=== PATIENT | male | born 1940 | race Caucasian/White ===

== ENCOUNTER 2020-06-05 11:48 | Inpatient (IN) | payer MEDICARE, OTHER, SELFPAY ==
[2020-06-05] VITALS (14 sets, daily range): BP systolic 80–93; BP diastolic 34–61; PULSE 63–94; RESP 17–23; TEMP 36–36.6; O2SAT 98–100
--- NOTE | ~2020-06-05 | XR_ITS ---
XR chest 1V portable 06/05/2020 14:14 Indication: Low blood pressure Procedure: AP portable chest Comparison: No prior studies for comparison. Findings: Status post median sternotomy for CABG. Cardiomegaly. Pacemaker leads in expected position. Left basilar atelectasis. No focal pneumonia, edema, pleural effusion or pneumothorax. There are mohamud gical changes in the left axilla and supraclavicular locations. Impression: 1: Left basilar atelectasis. 2: Cardiomegaly. Reviewed, dictated and finalized at location A. Impression: 1: Left basilar atelectasis. 2: Cardiomegaly.
--- NOTE | ~2020-06-05 | US_ITS ---
EXAMINATION:US venous doppler LE BI INDICATION:Leg edema TECHNIQUE: Multiple grayscale, color flow and Doppler images of the right and left lower extremity de ep venous systems were obtained and reviewed. COMPARISON:No prior studies for comparison. FINDINGS: The common femoral, superficial femoral and popliteal veins demonstrate normal respiratory variation, augmentation and compressibility. Color flow is also seen within the posterior tibial, pe roneal, greater saphenous and profunda veins. IMPRESSION: 1: No lower extremity deep venous thrombosis. Reviewed, dictated and finalized at location A.
--- NOTE | 2020-06-05 12:40 | PC.NURSE ---
Patient's contacted with patient's permission. She has provided information on how to contact home health.
[2020-06-05 12:44] LABS: Basophils Percent Auto 0.1 % (0.2-1.2); Eosinophils Absolute Auto 0.1 K/mm3 (0-0.3); Eosinophils Percent Auto 0.9 % (0-4.4); Hematocrit 22.4 % (42.0-52.0); Hemoglobin 7.3 g/dL (14.0-18.0); Immature Granulocyte Absolute 0.11 K/mm3 (0.00-0.031); Immature Granulocyte Percent A 1.1 % (0-0.5); Lymphocytes Percent Auto 18.1 % (18.3-44.2); Mean Corpuscular HGB Conc 32.6 g/dl (32-36); Mean Corpuscular Hemoglobin 27.3 pg (26-34); Mean Corpuscular Volume 83.9 fl (80-100); Mean Platelet Volume 10.9 fl (7.4-10.4); Monocytes Absolute Auto 0.9 K/mm3 (0.1-0.6); Monocytes Percent Auto 8.7 % (2.6-8.5); Neutrophils Absolute Auto 7.1 K/mm3 (1.3-6.7); Neutrophils Percent Auto 71.1 % (45.5-73.1); Platelet Count Result 92 k/mm3 (150-375); Red Blood Count 2.67 M/mm3 (4.6-6.20); White Blood Count 9.9 K/mm3 (4.5-10.0)
[2020-06-05 12:58] LABS: Alanine Aminotransferase 33 U/L (4-50); Albumin Level 2.3 g/dL (3.5-5.1); Alkaline Phosphatase 94 U/L (38-126); Anion Gap 3 mmol/L (8-16); Aspartate Amino Transferase 28 U/L (17-59); Bilirubin,Total 1.1 mg/dL (0.2-1.3); Blood Urea Nitrogen 49 mg/dL (9-20); Calcium 7.5 mg/dL (8.4-10.2); Carbon Dioxide 23 mmol/L (22-30); Chloride 101 mmol/L (98-107); Estimated Glomerular Filt Rate 34; Glucose 109 mg/dL (75-110); Sodium 127 mmol/L (137-145)
--- NOTE | 2020-06-05 13:07 | PC.NURSE ---
[facility] health contacted and will return call to the ED. Requesting information on patients history and treatment plans.
--- NOTE | 2020-06-05 13:39 | ED.GENADULT ---
HPI - General Adult General Chief complaint: Unspecified Stated complaint: Low Blood Pressure Time Seen by Provider: 06/05/20 12:38 Source: patient Mode of arrival: EMS Limitations: no limitations History of Present Illness HPI narrative: 79 years old white male brought to the emergency room because of low blood pressure reported by his home visiting nurse. Patient is asymptomatic. When the ambulance arrived to his house, systolic blood pressure was 88, improved to 90 2:02 50 cc normal saline bolus. Lately patient blood pressure been low, blood pressure medication was adjusted by his certified medicine aide in the last 2 days. Currently patient denying any fever, chills, nausea, vomiting, chest pain, shortness of breath, back pain, abdominal pain, headache, lightheadedness or blurry vision. History of melanoma, last immunotherapy over 1 month ago, patient is full code. Related Data Home Medications Medication Instructions Recorded Confirmed apixaban [Eliquis] 5 mg PO BID 06/05/20 06/05/20 carvedilol 12.5 mg PO BID 06/05/20 06/05/20 famotidine 20 mg PO DAILY 06/05/20 06/05/20 furosemide 20 mg PO DAILY 06/05/20 06/05/20 Allergies Allergy/AdvReac Type Severity Reaction Status Date / Time cefazolin Allergy Unknown Unknown Unverified 06/05/20 11:59 amoxicillin Allergy Unknown Verified 06/05/20 11:59 spironolactone Allergy Unknown Verified 06/05/20 11:59 Review of Systems Review of Systems: Narrative: CONSTITUTIONAL: Denies fever, chills, or sweats. EYES: Denies visual changes, redness, or discharge. ENT: Denies rhinorrhea, congestion, sore throat, or otalgia. CARDIOVASCULAR: Denies chest pain, palpitations, or edema. RESPIRATORY: Denies cough or dyspnea. GASTROINTESTINAL: Denies abdominal pain, nausea, vomiting, or diarrhea. GENITOURINARY: Denies dysuria or hematuria. SKIN: Denies rash or itching. MUSCULOSKELETAL: Denies back pain, joint pain, or myalgia. NEUROLOGIC: Denies headache, numbness, or weakness. PSYCHIATRIC: Denies anxiety or depression. [facility] Past Medical History Medical History (Updated 06/05/20 @ 14:38 by Dakota Concepcion MD) Coronary artery disease Hypertension Melanoma Social History Social History (Updated 06/05/20 @ 13:44 by Dakota Concepcion MD) Alcohol intake: unknown Substance use: unknown Substance use type: unknown Exam Narrative: Exam Narrative: General appearance: Well-developed, well-nourished Skin: Pale, extensive edema, 4+, lower extremity below knees bilaterally with weeping sores mainly on the dorsal side of the feet. Head: Normocephalic, nontraumatic Eyes: Pale conjunctiva ENT: Oropharynx normal, ears normal, nose normal Neck: Supple, nontender Chest and respiratory: Airway patent, no respiratory distress, no accessory muscle use Heart: Regular rate/rhythm Abdomen: Soft, nontender, no organomegaly, quiet bowel sounds Vascular: Normal peripheral pulses, normal capillary refill. Musculoskeletal: Normal range of motion, nontender back Neurologic: Alert and oriented ?3, HURL SHAKER is normal as tested, no gross motor deficit Course Course Emergency Course: Stable Vital Signs Vital signs: Vital Signs Temperature 36.3 C L 06/05/20 11:49 Pulse Rate 68 06/05/20 11:49 Respiratory Rate 18 06/05/20 11:49 Blood Pressure 90/61 L 06/05/20 11:49 Pulse Oximetry 100 06/05/20 11:49 Temperature 36.1 C L 06/05/20 12:31 Pulse Rate 65 06/05/20 12:31 Respiratory Rate 17 06/05/20 12:31 Blood Pressure 90/46 L 06/05/20 12:31 Pulse Oximetry 99 06/05/20 12:31 Medical Decision Making MDM Narrative Medical decision making narrative: Patient presented to the ED with asymptomatic hypotension History o
[2020-06-05 14:05] LABS: CRP 1.3 mg/dL (<1.0)
[2020-06-05 14:20] LABS: INR 1.9; Prothrombin Time 21.5 Seconds (11.1-14.7)
[2020-06-05 14:21] LABS: Partial Thromboplastin Time 36.3 SECONDS (22.3-36.8)
[2020-06-05 14:50] LABS: Add Urine Microscopic? YES; Appearance Urine Clear (Clear); Bacteria Urine Trace /hpf; Bilirubin Urine Negative (Negative); Blood Urine 1+ (Negative); Color Urine Yellow (Yellow); Glucose Urine UA Negative (Negative); Ketones Urine Negative (Negative); Leukocyte Esterase Ur 1+ LEU/UL (Negative); Mucus Urine Rare /lpf; Nitrate Urine Positive (Negative); Protein Urine Negative (Negative); Specific Grav Ur 1.012 (1.001-1.035); Urobilinogen Urine Negative mg/dL (<2.0); WBC Urine 21-30 /hpf
--- NOTE | 2020-06-05 15:00 | PC.NURSE ---
Patient noted to have open and weeping wounds bilaterally to both feet. Additional weeping wound noted to the right lower carrillo as well. Both feet, ankles, and shins are edematous with red color extending to the lower calf area. Weeping areas of both legs covered with telfa dressing and secured in place with kerlex roll gauze. Patient tolerated well.
[2020-06-05] MEDS: SODIUM CHLORIDE 0.9% IV 1,000 ML 60 ML IV CONT (16:32)
--- NOTE | 2020-06-05 16:53 | ADMGEN ---
This patient, Jesus Noble, was admitted to 3 [facility] Surg Room 320-01. Patient/family oriented to hospital policies and general routines including ID bracelet, bed and alarms, visiting hours, pain management, procedures, bathroom and other care routines, personal items, smoking policy, room service/diet, and visiting hours. Valuables list has been completed. Information on how to activate the Rapid Response Team has been discussed. Patient/Family are encouraged to report perceived risks to care and to ask questions if they do not understand what they are told or what they should do.
[2020-06-05] MEDS: SODIUM CHLORIDE 0.9% IV 500 ML 999 ML IV CONT (22:20)
[2020-06-05 22:32] LABS: Basophils Percent Auto 0.1 % (0.2-1.2); Eosinophils Absolute Auto 0.1 K/mm3 (0-0.3); Immature Granulocyte Absolute 0.06 K/mm3 (0.00-0.031); Immature Granulocyte Percent A 0.8 % (0-0.5); Lymphocytes Absolute Auto 1.63 K/mm3 (0.9-3.2); Lymphocytes Percent Auto 22.6 % (18.3-44.2); Mean Corpuscular HGB Conc 32.5 g/dl (32-36); Mean Corpuscular Hemoglobin 27.4 pg (26-34); Mean Corpuscular Volume 84.3 fl (80-100); Mean Platelet Volume 10.9 fl (7.4-10.4); Monocytes Absolute Auto 0.7 K/mm3 (0.1-0.6); Neutrophils Absolute Auto 4.8 K/mm3 (1.3-6.7); Neutrophils Percent Auto 66.5 % (45.5-73.1); Platelet Count Result 87 k/mm3 (150-375); Red Cell Distribution Width 20.1 % (11.5-14.5); White Blood Count 7.2 K/mm3 (4.5-10.0)
[2020-06-05 22:39] LABS: Hematocrit 19.4 % (42.0-52.0); Hemoglobin 6.3 g/dL (14.0-18.0)
[2020-06-05 22:42] LABS: Lactic Acid Reflex 1.4 mmol/L (0.7-2.1)
--- NOTE | 2020-06-05 22:49 | PM.IMHP ---
H&P: HPI History of Present Illness Date/Time: 06/05/20 22:49 Chief complaint: Hypotension/hyponatremia/renal failure Narrative: Jesus Noble is a 79 year old male Who has a history of having a mitral valve blood placement with a PEG tissue. He also has congestive heart failure. He also has a history of atrial fibrillation. The patient has been on Eliquis and Entresto. He has seen Dr. abel here in the past and still continues to see her outpatient. Patient was brought to the emergency room due to low blood pressure that was reported by his visiting nurses. He was asymptomatic at the time. His systolic blood pressure was 88. Improved and 90 with a normal saline bolus in the emergency room. He has not had any fever chills. No cough. He does have history of melanoma to the left side of his face he had immunotherapy over month ago but he said that it caused him to have some edema. And he recently had his Lasix increased. He said his Lasix was supposed to be increased for 1 week. He stated that the edema has gone down tremendously. However the patient states that he still has melanoma even at the he has had several surgeries and made is growing. Patient denied any hematemesis or he med sheets up. His H&H was 7.3 and then 22.4. His now 6.3 And 19.4. He is going to be transfused. patient's sodium was 127 is now 129. Creatinine 1.9 and now 1.8. Patient's blood pressure did drop back down and he was ordered the IV fluid bolus. Date of service 06/06/2020. Review of Systems Review of Systems: All systems reviewed & are unremarkable except as noted in HPI and below Constitutional: Constitutional: Reports as per HPI and Reports no additional constitutional complaints Eyes: Eyes: Reports as per HPI and Reports no additional eye complaints ENT: Reports system reviewed and no additional complaints, except as documented and Reports Normal hearing present Cardiovascular: Cardiovascular: Reports no additional cardiovascular complaints Respiratory: Respiratory: Reports no additional respiratory complaints and Reports no additional respiratory complaints Gastrointestinal: Gastrointestinal: Reports as per HPI and Reports no additional gastrointestinal complaints Musculoskeletal: Musculoskeletal: Reports no additional musculoskeletal complaints Integumentary/Breasts: Skin/Breast: Reports system reviewed and no additional complaints, except as docu and Reports as per HPI Neurologic: Reports system reviewed and no additional complaints, except as documented, Reports as per HPI and Reports Normal hearing present Psychiatric: Psychiatric: Reports no additional psychiatric complaints and Reports as per HPI Endocrine: Endocrine: Reports no additional endocrine complaints Hematologic/Lymphatic: Hematologic/Lymphatic: Reports no additional hematologic/lymphatic complaints Allergic/Immunologic: Allergic/Immunologic: Reports no additional allergic/immunologic complaints [facility] Past Medical History Medical History (Updated 06/05/20 @ 23:06 by Ciera Cunningham NP) Atrial fibrillation has a cardiac defibrillator BPH (benign prostatic hyperplasia) Cardiac defibrillator in situ Congestive heart failure Coronary artery disease Hypertension Melanoma Patient had several surgeries to the top of his left head and his neck and shoulder to remove the melanoma. He has had immunotherapy which did not work for him. It has been about a month since he has had the immunotherapy. He gets his care at [facility]. Surgical History Surgical History (Updated 06/05/20 @ 22:57 by Ciera Cunningham NP) H/O hernia repair x2 History of removal of pigmented skin lesion left side of his head and neck and shoulder Mitral valve replaced pig valve S/P TURP Family History Family History (Updated 06/05/20 @ 22:58 by Ciera Cunningham NP) Mother Diabetes mellitus Father Heart disease Other Unknown family medical history Social
[2020-06-05 22:50] LABS: Anion Gap 2 mmol/L (8-16); Blood Urea Nitrogen 50 mg/dL (9-20); Calcium 7.2 mg/dL (8.4-10.2); Carbon Dioxide 23 mmol/L (22-30); Chloride 104 mmol/L (98-107); Estimated Glomerular Filt Rate 36; Glucose 183 mg/dL (75-110); Potassium 3.9 mmol/L (3.4-5.0); Sodium 129 mmol/L (137-145)
[2020-06-05 22:55] LABS: Immature Reticulocyte Fraction 13.1 % (3.0-15.9); Reticulocyte Hemoglobin Conten 31.3 pg (28.2-35.7); Reticulocyte Percent 3.29 % (0.7-4.3); Reticulocytes Absolute 0.08 B/L (32.2-175.7)
[2020-06-05 23:13] LABS: Iron 30 ug/dL (49-181)
[2020-06-05 23:22] LABS: Percent Iron Saturation 16 % (20-50)
[2020-06-06] VITALS (20 sets, daily range): BP systolic 78–102; BP diastolic 40–52; PULSE 60–71; RESP 16–20; TEMP 36.3–36.7; O2SAT 95–98
[2020-06-06] MEDS: SODIUM CHLORIDE 0.9% IV 250 ML 30 ML IV CONT (00:15)
[2020-06-06 00:17] LABS: Folic Acid 13.5 ng/mL (2.76->20)
[2020-06-06 07:20] LABS: Hematocrit 26.3 % (42.0-52.0); Hemoglobin 8.5 g/dL (14.0-18.0)
[2020-06-06 07:29] LABS: Alanine Aminotransferase 28 U/L (4-50); Alkaline Phosphatase 84 U/L (38-126); Anion Gap 2 mmol/L (8-16); Aspartate Amino Transferase 29 U/L (17-59); Bilirubin,Total 1.6 mg/dL (0.2-1.3); Blood Urea Nitrogen 43 mg/dL (9-20); Calcium 7.2 mg/dL (8.4-10.2); Carbon Dioxide 25 mmol/L (22-30); Chloride 108 mmol/L (98-107); Estimated Glomerular Filt Rate 42; Glucose 100 mg/dL (75-110); Magnesium 2.4 mg/dL (1.6-2.3); Potassium 3.9 mmol/L (3.4-5.0); Sodium 135 mmol/L (137-145)
[2020-06-06 08:40] LABS: Sodium Urine Random < 5 meq/L
--- NOTE | 2020-06-06 09:01 | PC.NURSE ---
Patient withdrawn upon entering room. Patient states he does not want any of his medications and does not think they are helping him. Patient also states he does not want to be physically assessed. This RN made inquiries into patient's dissatisfaction but patient refused to have conversation. Patient only states that he wants to be transferred to [facility]. This RN called patient's provider, Dr. Cordero at [phone] to alert doctor to patient's dissatisfaction and wishes to be transferred to [facility]. Provider gave no orders but stated he would see patient shortly.
--- NOTE | 2020-06-06 10:35 | PM.CNCAR ---
Assessment and Plan Additional Plan asymptomatic hypotension and BRYAN with acute on chronic anemia, no signs of active bleeding, BRYAN resolved with Blood transfusion and fluids, Hx of C diff and diarrhea, Hx of MVR (bioprthesis) and TV repair, hx of maze and A flutter, HFrEF (Ef 40%), plan Cont entresto dose to , cont carvidelol 12.5 mg BID and hold lasix for today and resume tomorrow. Management of his LE edema is challenging because it's multifactorial and involving low albumin and malnutrition, woudl recommend restart diuresis and giving intermittent diuresis holidays and need to elevate feet while sleep and use compression stocking. History of Present Illness History of Present Illness Consult date/time: 06/06/20 10:35 Consult reason: congestive heart failure Reason For Visit: Hypotension/hyponatremia/renal failure Narrative: Patient presented to hospital based on recommendation from home health nurse who documented low BP reading, patient was asymptomatic and he ambulates with walker with no dizziness or SOB. He was recenlty admitted to [facility] with dyhydration and C diff colitis and when went home, although swelling was improving but started having blisters in leg. He had Hx of MVR (bioprosthesis) and TV reapri, Maze procedure and A flutter. when arrived systolic BP was 80s and BRYAN that improved with iv fluids and blood transfusion. He had metastatic menalone and receiving therapy through [facility] system. Review of Systems Review of Systems: All systems reviewed & are unremarkable except as noted in HPI and below PMFSH Past Medical History Medical History (Updated 06/05/20 @ 23:06 by Ciera Cunningham NP) Atrial fibrillation has a cardiac defibrillator BPH (benign prostatic hyperplasia) Cardiac defibrillator in situ Congestive heart failure Coronary artery disease Hypertension Melanoma Patient had several surgeries to the top of his left head and his neck and shoulder to remove the melanoma. He has had immunotherapy which did not work for him. It has been about a month since he has had the immunotherapy. He gets his care at [facility]. Surgical History Surgical History (Updated 06/05/20 @ 22:57 by Ciera Cunningham NP) H/O hernia repair x2 History of removal of pigmented skin lesion left side of his head and neck and shoulder Mitral valve replaced pig valve S/P TURP Family History Family History (Updated 06/05/20 @ 22:58 by Ciera Cunningham NP) Mother Diabetes mellitus Father Heart disease Other Unknown family medical history Social History Social History (Updated 06/05/20 @ 23:00 by Ciera Cunningham NP) Social History: the patient was an software validation engineer. the patient had 3 children. He lives with his . She is a durable power county attorney for healthcare. The patient desires to be a full code. He does not use any alcohol, marijuana, or illicit drugs. The patient stated he used to drink wine back in a but no longer. Smoking status: Never smoker Alcohol intake: never Substance use: never Living arrangements: with family Gender identity (if verbalized by the patient): Male Spiritual care concerns: Yes (Would like to see the play back operator) Meds Home Medications and Allergies Home Medications Medication Instructions Recorded Confirmed Type Calcium Magnesium 06/05/20 History apixaban [Eliquis] 5 mg PO BID 06/05/20 06/05/20 History carvedilol 12.5 mg PO BID 06/05/20 06/05/20 History famotidine 20 mg PO DAILY 06/05/20 06/05/20 History ferrous sulfate 65 mg PO DAILY 06/05/20 06/05/20 History furosemide 20 mg PO BID 06/05/20 06/05/20 History sacubitril-valsartan [Entresto] 49 - 51 tablet PO BID 06/05/20 06/05/20 History Allergies Allergy/AdvReac Type Severity Reaction Status Date / Time cefazolin Allergy Unknown Unknown Verified 06/05/20 16:54 amoxicillin Allergy Unknown Verified 06/05/20 16:54 spironolactone Allergy Unknown Verified
[2020-06-06 12:00] LABS: Hemoglobin 9.2 g/dL (14.0-18.0)
--- NOTE | 2020-06-06 12:06 | WPDGICN ---
Assessment and Plan Assessment and plan (1) Symptomatic anemia: Code(s): D64.9 - Anemia, unspecified Status: Acute Assessment and Plan: responded to blood transfusion probably multifactorial and could be from metastatic melanoma, peptic ulcer disease (report of dark stools), use of blood thinner which is on hold now, etc I offered to proceed with EGD tomorrow but both and declined given advanced melanoma stage and other medical issues. If they change their mind then I will be available. continue for now with medical treatment including PPI bid, also supportive care (2) Metastatic melanoma: Code(s): C79.9 - Secondary malignant neoplasm of unspecified site Status: Acute Assessment and Plan: poor prognosis, he was just informed recently about PET scan. he is seeing oncologist in [facility] (3) Congestive heart failure: Code(s): I50.9 - Heart failure, unspecified Status: Chronic Assessment and Plan: cardiology on board (4) Atrial fibrillation: Code(s): I48.91 - Unspecified atrial fibrillation Status: Chronic (5) Hyponatremia: Code(s): E87.1 - Hypo-osmolality and hyponatremia Status: Acute (6) Hypotension: Qualifiers: Hypotension type: unspecified hypotension type Qualified Code(s): I95.9 - Hypotension, unspecified Code(s): I95.9 - Hypotension, unspecified Status: Acute Assessment and Plan: resolved now (7) Renal failure: Qualifiers: Renal failure chronicity: unspecified chronicity Qualified Code(s): N19 - Unspecified kidney failure Code(s): N19 - Unspecified kidney failure Status: Acute Assessment and Plan: monitor renal function, by primary team GI Consult Note Consult date/time: 06/06/20 12:06 Reason for consult: symptomatic anemia, hypotension HPI: Jesus Noble is a 79 year old male history of mitral valve replacement, congestive heart failure, atrial fibrillation using Eliquis and metastatic melanoma (started in left cheek, had surgery and about 1 month ago immunotherapy but unfortunately 2 weeks ago had PET scan that showed widespread metastasis- per who is at bedside). He had his home health nurse visiting who found low blood pressure, also report of more leg edema after melanoma treatment and was taken to ER. He was found to have anemia with hb 6.3, received blood transfusion now up to 9. says that had dark stool, also colonoscopy about 4 years ago. Review of Systems Constitutional: Constitutional: Reports fatigue Eyes: Eyes: Denies blurry vision ENT: Comments: melanoma left neck/cheek Cardiovascular: Cardiovascular: Denies chest pain Respiratory: Respiratory: Denies cough Gastrointestinal: Gastrointestinal: Denies abdominal pain Musculoskeletal: Musculoskeletal: Denies joint swelling Integumentary/Breasts: Comments: melanoma Neurologic: Denies headache(s) Psychiatric: Psychiatric: Denies confusion [facility] Past Medical History Medical History (Updated 06/06/20 @ 12:13 by Eleazar Ashley MD) Atrial fibrillation has a cardiac defibrillator BPH (benign prostatic hyperplasia) Cardiac defibrillator in situ Congestive heart failure Coronary artery disease Hypertension Melanoma Patient had several surgeries to the top of his left head and his neck and shoulder to remove the melanoma. He has had immunotherapy which did not work for him. It has been about a month since he has had the immunotherapy. He gets his care at [facility]. Metastatic melanoma Symptomatic anemia Surgical History Surgical History (Updated 06/05/20 @ 22:57 by Ciera Cunningham NP) H/O hernia repair x2 History of removal of pigmented skin lesion left side of his head and neck and shoulder Mitral valve replaced pig valve S/P TURP Family History Family History (Updated
--- NOTE | 2020-06-06 12:07 | PM.IMPN ---
Progress Note: A&P Assessment and Plan (1) Hypotension: Qualifiers: Hypotension type: unspecified hypotension type Qualified Code(s): I95.9 - Hypotension, unspecified Code(s): I95.9 - Hypotension, unspecified Status: Acute Assessment and Plan: Patient was brought in to the emergency room today because of his low blood pressure as noted by home health. Patient tells me that he recently had his Lasix increased for 1 week. So I am holding his Lasix and his Entresto and his Coreg at this time. He did receive some IV boluses but we redo his H&H and has dropped. 06/06/20 12:07 Patient is 79-year-old male with history CHF with moderate ejection fraction 40%, he has a history of MVR (bioprosthesis) and TV reapair, Maze procedure and A flutter. was recently admitted to [facility] for C diff and dehydrated he was discharged home on antibiotics for 14 days which he completed and denies any complaints of loose BM, he was seen by his home health nurse noted that patient blood pressure was in 80s we did not have any complaints of chest pain shortness of breath palpitation and he was brought to the emergency department, he also was found to have BRYAN he was seen by a hydro plant technician reduced his entresto 24/26 from 49/51 and Coreg to 6.25 from 12.5 and held is lasix, and hemoglobin was 6.6 upon arrival, he denies any abdominal pain rectal bleeding or hematemesis, he is on Eliquis which on hold. we have consulted GI for their opinion, patient was given transfusion in the ER this has improved his BRYAN as well as his blood pressure, Patient wish to be transferred to [facility] for no reason, I explained to the patient currently there is 3-5days, waiting list. will continue to [facility] and have PT/OT evaluate the patient, patient will benefit going home with PT. (2) Hyponatremia: Code(s): E87.1 - Hypo-osmolality and hyponatremia Status: Acute Assessment and Plan: patient does have a history of having melanoma and it continues to spread. I am not sure if his sodium is low because of that are because of his increased Lasix. However his Lasix is on hold at this time. most likely 2/2 dehydration, its improving with IVF and lasix on hold (3) Renal failure: Qualifiers: Renal failure chronicity: unspecified chronicity Qualified Code(s): N19 - Unspecified kidney failure Code(s): N19 - Unspecified kidney failure Status: Acute Assessment and Plan: I am not able to tell if this is acute on chronic. He has had IV fluids and it seems to have improved some. His Lasix and Entresto on hold at this time. We may need to consult Dr. bullard for further evaluation of his home medications. Continue to monitor his BMP. It looks like it is starting to come up somewhat. (4) Atrial fibrillation: Code(s): I48.91 - Unspecified atrial fibrillation Status: Chronic Assessment and Plan: Patient has AICD. He was on Coumadin at 1 time and then switched to Eliquis. However his H&H has dropped and we are holding his Eliquis as well. I am doing as stool for occult blood and anemia profile. Patient's blood pressure is low so his Entresto and Coreg are on hold at this time. (5) Congestive heart failure: Code(s): I50.9 - Heart failure, unspecified Status: Chronic Assessment and Plan: He is seen by Dr. bullard. His Lasix Entresto and Coreg on hold at this time. (6) Melanoma: Code(s): C43.9 - Malignant melanoma of skin, unspecified Status: Chronic Assessment and Plan: Patient had immunotherapy which he stated causes some peripheral edema and is no longer taking it. He has had resection to his left neck and shoulder and his head from the melanoma. He still has the cancer. (7) Anemia: Code(s): D64.9 - Anemia, unspecified Status: Acute Assessment and Plan: Patient is going to be transfused with 2 units of packed re
[2020-06-06 16:06] LABS: Immunochemical Fecal Occult Bl Positive (N)
[2020-06-06 16:07] LABS: IFOB Positive Control Positive
[2020-06-06 18:11] LABS: Hematocrit 26.9 % (42.0-52.0); Hemoglobin 8.8 g/dL (14.0-18.0)
[2020-06-06] MEDS: SODIUM CHLORIDE 0.9% IV 1,000 ML 60 ML IV CONT (19:53)
[2020-06-06] MEDS: PANTOPRAZOLE 40 MG TABLET PO (21:25)
[2020-06-06] MEDS: carvediloL 6.25 MG TABLET PO (21:25)
[2020-06-06] MEDS: SACUBITRIL/VALSARTAN 24-26 MG TABLET 1 TAB PO (21:25)
[2020-06-07] VITALS (9 sets, daily range): BP systolic 89–136; BP diastolic 51–90; PULSE 58–76; RESP 18–20; TEMP 36.4–36.8; O2SAT 97–98
[2020-06-07 06:37] LABS: Hematocrit 27.9 % (42.0-52.0); Hemoglobin 8.9 g/dL (14.0-18.0); Mean Corpuscular HGB Conc 31.9 g/dl (32-36); Mean Corpuscular Hemoglobin 27.9 pg (26-34); Mean Corpuscular Volume 87.5 fl (80-100); Mean Platelet Volume 10.1 fl (7.4-10.4); Platelet Count Result 94 k/mm3 (150-375); Red Blood Count 3.19 M/mm3 (4.6-6.20); Red Cell Distribution Width 19.1 % (11.5-14.5); White Blood Count 7.8 K/mm3 (4.5-10.0)
[2020-06-07 07:00] LABS: Alanine Aminotransferase 25 U/L (4-50); Alkaline Phosphatase 89 U/L (38-126); Anion Gap -1 mmol/L (8-16); Aspartate Amino Transferase 28 U/L (17-59); Bilirubin,Total 1.3 mg/dL (0.2-1.3); Blood Urea Nitrogen 34 mg/dL (9-20); Calcium 7.4 mg/dL (8.4-10.2); Carbon Dioxide 28 mmol/L (22-30); Chloride 110 mmol/L (98-107); Estimated Glomerular Filt Rate 53; Glucose 103 mg/dL (75-110); Sodium 137 mmol/L (137-145)
[2020-06-07 07:11] LABS: Potassium 4.2 mmol/L (3.4-5.0)
[2020-06-07] MEDS: FERROUS SULFATE 324 MG TABLET PO (08:55)
[2020-06-07] MEDS: carvediloL 6.25 MG TABLET PO (08:55)
[2020-06-07] MEDS: PANTOPRAZOLE 40 MG TABLET PO (08:56)
[2020-06-07] MEDS: SACUBITRIL/VALSARTAN 24-26 MG TABLET 1 TAB PO (08:56)
--- NOTE | 2020-06-07 12:46 | PM.PNCARD ---
Progress Note: A&P Assessment and Plan (1) Hypotension: Qualifiers: Hypotension type: unspecified hypotension type Qualified Code(s): I95.9 - Hypotension, unspecified Code(s): I95.9 - Hypotension, unspecified Status: Acute Assessment and Plan: Asymptomatic. Carvedilol and Entresto resumed p.m. dose 06/06/2020. (2) Hyponatremia: Code(s): E87.1 - Hypo-osmolality and hyponatremia Status: Acute Assessment and Plan: Resolved. Sodium 137 06/07/2020. Discontinue IV fluids. (3) Atrial fibrillation: Code(s): I48.91 - Unspecified atrial fibrillation Status: Chronic Assessment and Plan: Anticoagulation has been discontinued given anemia requiring transfusion and probable GI bleed. (4) Congestive heart failure: Code(s): I50.9 - Heart failure, unspecified Status: Chronic Assessment and Plan: Chronic HFrEF. Not decompensated at this time. Lower extremity edema is challenging because it is multifactorial in involving low albumin and malnutrition. Edema is improved most likely as he has been on bedrest. Compression stockings/MAR wraps to lower extremities. The should be applied before he gets out of bed and removed at bedtime. Restarting diuretics to be determined. Additional Plan Up to chair especially for meals. Elevate legs. Plan discussed with Dr. 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 Date of service: 06/07/2020 Subjective: Denied chest discomfort, shortness of breath, lightheadedness or palpitations. Lower extremity edema is improved but he has not been out of bed. Left arm swelling is about the same. Review of Systems Constitutional: Constitutional: Denies chills, Denies fatigue and Denies weakness Eyes: Eyes: Denies blurry vision ENT: Reports Normal hearing present Cardiovascular: Cardiovascular: Denies chest pain, Reports pedal edema, Reports leg edema, Denies lightheadedness, Denies palpitations, Denies dyspnea on exertion, Denies orthopnea and Denies paroxysmal nocturnal dyspnea Respiratory: Respiratory: Denies dyspnea, Denies dyspnea on exertion and Denies wheezing Gastrointestinal: Gastrointestinal: Denies abdominal pain, Denies nausea and Denies vomiting Genitourinary: Genitourinary: Denies hematuria and Reports urinary incontinence Musculoskeletal: Musculoskeletal: Denies back pain and Denies arthralgias Integumentary/Breasts: Skin/Breast: Reports dry skin and Reports other (Lower extremity weeping) Neurologic: Denies headache(s) and Denies numbness Psychiatric: Psychiatric: Denies anxiety and Denies depression Exam Const: General: comfortable and no acute distress Other: Able to lie flat HENMT: General nose exam: Normal nares present and no epistaxis Mouth: Yes moist mucous membranes Eyes: Sclera: sclerae normal Pupils: Equal, round and reactive pupils present Neck: Neck: supple and no JVD Resp: Auscultation: clear to auscultation bilaterally and lung sounds not diminished Cardio: Rate: regular rate Rhythm: regular rhythm Heart sounds: no gallops, no murmurs and no rubs GI: Auscultation: normal bowel sounds Skin: General skin exam: normal color, ecchymosis (From vena punctures and IVs.) and other (Multiple areas of scratch is on lower legs and feet.) Other: Warm Neuro: Cranial nerves: Yes Equal, round and reactive pupils present Speech: normal speech Other: No obvious focal deficit or facial asymmetry Extrem: General: edema (2 to 3+ pitting) bilateral Other: Normal capillary refills Intact distal pulses. Psych: Appearance: grossly normal Mental S
--- NOTE | 2020-06-07 14:51 | WPDGIPROGNO ---
Progress Note: A&P Assessment and Plan (1) Symptomatic anemia: Code(s): D64.9 - Anemia, unspecified Status: Acute Assessment and Plan: hb responded to blood transfusion, no signs of overt gib I offered to do EGD tormorrow but he will be transferred to [facility] where he has all his doctors continue with medical management for now (2) Metastatic melanoma: Code(s): C79.9 - Secondary malignant neoplasm of unspecified site Status: Acute Assessment and Plan: will see his oncologist at [facility] (3) Atrial fibrillation: Code(s): I48.91 - Unspecified atrial fibrillation Status: Chronic (4) Congestive heart failure: Code(s): I50.9 - Heart failure, unspecified Status: Chronic Subjective Date/time seen: 06/07/20 14:51 Interval history: no report of bleeding. RN informed me that patient is going to [facility]. Review of Systems Review of Systems: All systems reviewed & are unremarkable except as noted in HPI and below Exam Const: General: comfortable and no acute distress Other: Able to lie flat HENMT: General nose exam: Normal nares present Mouth: Yes moist mucous membranes Eyes: Sclera: sclerae normal Pupils: Equal, round and reactive pupils present Neck: Neck: supple and no JVD Resp: Auscultation: clear to auscultation bilaterally Other: No chest wall tenderness Cardio: Rate: regular rate Rhythm: regular rhythm Heart sounds: no gallops and no murmurs GI: GI Palp: Yes Soft to palpation, No Firmness to palpation present (GI) and No Tenderness to palpation present (GI) Auscultation: normal bowel sounds Skin: General skin exam: pallor Other: scar left neck, melanoma Neuro: Cranial nerves: Yes Equal, round and reactive pupils present Speech: normal speech Other: No obvious focal deficit Extrem: General: edema (bilateral) Other: Normal capillary refills Intact distal pulses. Psych: Affect: Anxious affect present Objective Data Vital Signs Vital Signs: Vital Signs - 24 hr 06/06/20 15:45 06/06/20 16:00 06/06/20 20:00 Temperature 97.7 F 97.8 F Pulse Rate 62 64 63 Respiratory Rate 16 18 Blood Pressure 100/49 L 98/52 L Pulse Oximetry 96 97 06/06/20 21:25 06/07/20 00:00 06/07/20 04:00 Temperature 98.1 F 98.2 F Pulse Rate 61 74 67 Respiratory Rate 18 20 Blood Pressure 90/53 L 123/56 L Pulse Oximetry 97 97 06/07/20 08:00 06/07/20 08:55 06/07/20 10:00 Temperature 97.6 F Pulse Rate 69 60 62 Respiratory Rate 18 Blood Pressure 103/51 L Pulse Oximetry 98 06/07/20 12:00 Temperature Pulse Rate 76 Respiratory Rate Blood Pressure Pulse Oximetry Intake/Output Intake/Output: Intake & Output 06/04/20 06/05/20 06/06/20 06/07/20 23:59 23:59 23:59 23:59 Intake Total 240 2480 1812 Output Total 300 200 Balance -60 2280 1812 Meds/Results Medications: Active Medications Generic Name Dose Route Start Last Admin Trade Name Jonasq PRN Reason Stop Dose Admin Carvedilol 6.25 mg 06/06/20 21:00 06/07/20 08:55 Coreg PO 6.25 mg Q12HR OUMAR Administration Ferrous Sulfate 324 mg 06/06/20 08:00 06/07/20 08:55 Ferrous Sulfate PO 324 mg DAILY@0800 OUMAR Administration Pantoprazole Sodium 40 mg 06/06/20 21:00 06/07/20 08:56 Protonix PO 40 mg Q12HR OUMAR Administration Sacubitril/Valsartan 1 tab 06/06/20 21:00 06/07/20 08:56 Entresto 24 Mg-26 Mg Tablet PO 1 tab Q12HR OUMAR Administration Silver Nitrate 1 applic 06/07/20 09:00 Silvergel TOPICAL DAILY [facility] Radiology Results: ITS Impressions Chest X-Ray 06/05/20 14:47 Impression: 1: Left basilar atelectasis. 2: Cardiomegaly. Venous Doppler Study 06/06/20 12:25 IMPRESSION: 1: No lower extremity deep venous thrombosis. Labs Labs: Laboratory Results - last 24 hr 06/06/20 06/06/20 06/07/20 14:19 17:46 06:16 WBC RBC Hgb 8.8 L Hct 26.9 L MCV MCH MCHC RDW Plt
[2020-06-07] MEDS: SILVERGEL (ELTA) 45 ML 1 APPLIC TOPICAL (14:59)
--- NOTE | 2020-06-07 15:31 | PM.IMPN ---
Progress Note: A&P Assessment and Plan (1) Hypotension: Qualifiers: Hypotension type: unspecified hypotension type Qualified Code(s): I95.9 - Hypotension, unspecified Code(s): I95.9 - Hypotension, unspecified Status: Acute Assessment and Plan: Patient was brought in to the emergency room today because of his low blood pressure as noted by home health. Patient tells me that he recently had his Lasix increased for 1 week. So I am holding his Lasix and his Entresto and his Coreg at this time. He did receive some IV boluses but we redo his H&H and has dropped. 06/07/20 15:31 Patient is 79-year-old male with history CHF with moderate ejection fraction 40%, he has a history of MVR (bioprosthesis) and TV reapair, Maze procedure and A flutter. was recently admitted to [facility] for C diff and dehydrated he was discharged home on antibiotics for 14 days which he completed and denies any complaints of loose BM, he was seen by his home health nurse noted that patient blood pressure was in 80s we did not have any complaints of chest pain shortness of breath palpitation and he was brought to the emergency department, on 06/06 he also was found to have BRYAN he was seen by a security project manager reduced his entresto / from 49/51 and Coreg to 6.25 from 12.5 and held is lasix, and hemoglobin was 6.6 upon arrival, he denied any abdominal pain rectal bleeding or hematemesis, he is on Eliquis which on hold patient was given 2 uints of blood. today 06/07 patient is feeling much better is in better mood, his is present in the room his hemoglobin is stable, his kidney function is improved, patient is seen by Cardiology we have continued present management, patient is insisting to be transferred to [facility], I spoke with Dr. Anders his e commerce marketing analyst oncologist for metastatic melanoma, he has been accepted by the physician awaiting to be transferred. (2) Hyponatremia: Code(s): E87.1 - Hypo-osmolality and hyponatremia Status: Acute Assessment and Plan: patient does have a history of having melanoma and it continues to spread. I am not sure if his sodium is low because of that are because of his increased Lasix. However his Lasix is on hold at this time. today patient's sodium is 137, will start IVF most likely 2/2 dehydration, its improving with IVF and lasix on hold (3) Renal failure: Qualifiers: Renal failure chronicity: unspecified chronicity Qualified Code(s): N19 - Unspecified kidney failure Code(s): N19 - Unspecified kidney failure Status: Acute Assessment and Plan: I am not able to tell if this is acute on chronic. He has had IV fluids and it seems to have improved some. His Lasix and Entresto on hold at this time. We may need to consult Dr. bullard for further evaluation of his home medications. Continue to monitor his BMP. It looks like it is starting to come up somewhat. (4) Atrial fibrillation: Code(s): I48.91 - Unspecified atrial fibrillation Status: Chronic Assessment and Plan: Patient has AICD. He was on Coumadin at 1 time and then switched to Eliquis. However his H&H has dropped and we are holding his Eliquis as well. I am doing as stool for occult blood and anemia profile. Patient's blood pressure is low so his Entresto and Coreg are on hold at this time. (5) Congestive heart failure: Code(s): I50.9 - Heart failure, unspecified Status: Chronic Assessment and Plan: He is seen by Dr. bullard. His Lasix Entresto and Coreg on hold at this time. (6) Melanoma: Code(s): C43.9 - Malignant melanoma of skin, unspecified Status: Chronic Assessment and Plan: Patient had immunotherapy which he stated causes some peripheral edema and is no longer taking it. He has had resection to his left neck and shoulder and his head from the melanoma. He still has the cancer. (7) Anemia: Cod
--- NOTE | 2020-06-07 16:03 | PC.NURSE ---
Report called to Jayne at [facility].
--- NOTE | 2020-06-07 16:24 | PM.TDS ---
Transfer Discharge Sum: Prov Provider Date of admission: 06/05/20 16:47 Primary care physician: ENGINE DYNAMOMETER TESTER PHYSICIAN Admitting clinician: Hung Herrera MD Consults: 06/05/20 Consult to Physician Routine Comment: SPOKE TO DR MOSQUEDA @[id number]([place],) Consulting Provider: Enriqueta Mosqueda call out clerk/MD group to consult: dr rivas Reason for consultation: a fib and chf Has provider been notified: Yes Wound/ET Consult Routine Reason for Consult:: abrasions to lower extremities 06/06/20 Wound/ET Consult Routine Reason for Consult:: Patient has ulcer/bed sore on coccyx. Wound photos taken. 06/06/20 08:39 Consult to Physician Routine Comment: spoke to dr guerrero @[id number] ([place],) Consulting Provider: Eleazar Ashley call out clerk/ group to consult: GI Reason for consultation: anemia, hh was 6.6 Has provider been notified: Yes DS: Admitting Diagnosis Admitting Diagnosis Admitting Diagnosis: Hypotension/hyponatremia/renal failure DS: Discharge Diagnosis Discharge Diagnosis (1) Hypotension: Qualifiers: Hypotension type: unspecified hypotension type Qualified Code(s): I95.9 - Hypotension, unspecified Code(s): I95.9 - Hypotension, unspecified Status: Acute Assessment and Plan: Patient was brought in to the emergency room today because of his low blood pressure as noted by home health. Patient tells me that he recently had his Lasix increased for 1 week. So I am holding his Lasix and his Entresto and his Coreg at this time. He did receive some IV boluses but we redo his H&H and has dropped. 06/07/20 15:31 Patient is 79-year-old male with history CHF with moderate ejection fraction 40%, he has a history of MVR (bioprosthesis) and TV reapair, Maze procedure and A flutter. was recently admitted to [facility] for C diff and dehydrated he was discharged home on antibiotics for 14 days which he completed and denies any complaints of loose BM, he was seen by his home health nurse noted that patient blood pressure was in 80s we did not have any complaints of chest pain shortness of breath palpitation and he was brought to the emergency department, on 06/06 he also was found to have BRYAN he was seen by a rack washer reduced his entresto / from 49/51 and Coreg to 6.25 from 12.5 and held is lasix, and hemoglobin was 6.6 upon arrival, he denied any abdominal pain rectal bleeding or hematemesis, he is on Eliquis which on hold patient was given 2 uints of blood. today 06/07 patient is feeling much better is in better mood, his is present in the room his hemoglobin is stable, his kidney function is improved, patient is seen by Cardiology we have continued present management, patient is insisting to be transferred to [facility], I spoke with Dr. Anders his district customs director oncologist for metastatic melanoma, he has been accepted by the physician awaiting to be transferred. (2) Hyponatremia: Code(s): E87.1 - Hypo-osmolality and hyponatremia Status: Acute Assessment and Plan: patient does have a history of having melanoma and it continues to spread. I am not sure if his sodium is low because of that are because of his increased Lasix. However his Lasix is on hold at this time. today patient's sodium is 137, will start IVF most likely 2/2 dehydration, its improving with IVF and lasix on hold (3) Renal failure: Qualifiers: Renal failure chronicity: unspecified chronicity Qualified Code(s): N19 - Unspecified kidney failure Code(s): N19 - Unspecified kidney failure Status: Acute Assessment and Plan: I am not able to tell if this is acute on chronic. He has had IV fluids and it seems to have improved some. His Lasix and Entresto on hold at this time. We may need to consult Dr. bullard for further evaluation of his home medications. Continue to monitor his BMP. It looks like it is starting to come up somewhat. (4) At
[2020-06-11 06:03] LABS: Osmolality, Urine 388 mOsm/kg (50-1200)
== END 2020-06-07 18:40 | disposition short-term general hospital (02) | DRG 315 ==
LOC: ANHED 14:47 → ANH3MEDSUR 16:03
PROVIDERS: Emergency Medicine; Family Medicine; Nurse Practitioner; Admitting Provider Internal Medicine; Emergency Provider Emergency Medicine; Visit Provider Family Medicine
DX: I95.9 Hypotension, unspecified (principal); E87.1 Hypo-osmolality and hyponatremia; C79.9 Secondary malignant neoplasm of unspecified site; C49.0 Malignant neoplasm of connective and soft tissue of head, face and neck; N17.9 Acute kidney failure, unspecified; I50.22 Chronic systolic (congestive) heart failure; L89.159 Pressure ulcer of sacral region, unspecified stage; S80.819A Abrasion, unspecified lower leg, initial encounter; I48.91 Unspecified atrial fibrillation; I11.0 Hypertensive heart disease with heart failure; I25.10 Atherosclerotic heart disease of native coronary artery without angina pectoris; D64.9 Anemia, unspecified; N40.0 Benign prostatic hyperplasia without lower urinary tract symptoms; Z95.4 Presence of other heart-valve replacement; Z95.810 Presence of automatic (implantable) cardiac defibrillator; Z79.01 Long term (current) use of anticoagulants; Z79.899 Other long term (current) drug therapy
CPT/HCPCS: 36415; 36430; 51701; 71045; 80048; 80053; 81001; 82274; 82607; 82728; 82746; 83540; 83550; 83605; 83735; 83935; 84300; 84443; 85014; 85018; 85025; 85027; 85046; 85610; 85730; 86140; 86850; 86900; 86901; 86923; 87040; 87077; 87086; 87088; 87186; 93005; 93970; 99285; A9270; G0378; J7030; J7040; J7050; P9016